=== PATIENT | female | born 1935 | race Caucasian/White ===

== ENCOUNTER 2020-08-17 15:10 | Inpatient (IN) | payer MEDICARE ==
[~2020-08-17] VITALS: Ht 165.1 cm; Wt 72.6 kg
[~2020-08-17 15:10] MED LIST: ALPR1TAB7 PO; ASPI-1169 PO; ATEN100T PO; CALC667T6 PO; FURO40TA5 PO; LACT1CAP57 PO; LEVO500T90 PO; MUPI22OI2 TOP; PANT40TA49 PO; SERT100T PO; TRIAMCINOLONE 0.1% TOP
[2020-08-17 16:00] VITALS: BP 118/36
[2020-08-17] MEDS ORDERED: Z GUARD REMEDY PASTE 57 GM TUBE TOP PRN (16:30)
[2020-08-17] MEDS ORDERED: DOCU100C36 PO (17:29)
[2020-08-17] MEDS ORDERED: ASPI-1169 PO (17:29)
[2020-08-17] MEDS ORDERED: FLUT1BLS6 IH (17:29)
[2020-08-17] MEDS ORDERED: ALPR1TAB2 PO (17:29)
[2020-08-17] MEDS ORDERED: METO25TA6 PO (17:29)
[2020-08-17] MEDS ORDERED: CHOL100062 PO (17:29)
[2020-08-17] MEDS ORDERED: AMLO10TA59 PO (17:29)
[2020-08-17] MEDS ORDERED: APIX2.5T PO (17:29)
[2020-08-17] MEDS ORDERED: SULF1TAB48 PO (17:29)
[2020-08-17] MEDS ORDERED: PANT40TA49 PO (17:29)
[2020-08-17] MEDS ORDERED: ZOLP5TAB8 PO (17:29)
[2020-08-17] MEDS ORDERED: SENN-18 PO (17:29)
[2020-08-17] MEDS ORDERED: IPRA3AMP23 IH (17:29)
[2020-08-17] MEDS ORDERED: DOXE10CA2 PO (17:29)
[2020-08-17] MEDS ORDERED: SERT100T PO (17:29)
[2020-08-17] MEDS ORDERED: SUCR1ORA4 PO (17:29)
[2020-08-17] MEDS ORDERED: OMEG1CAP PO (17:29)
[2020-08-17] MEDS ORDERED: ACET-2154 PO (17:29)
[2020-08-17] MEDS ORDERED: PRAV80TA21 PO (17:29)
[2020-08-17] MEDS ORDERED: CHOL400D8 PO (17:29)
[2020-08-17] MEDS ORDERED: MAGN400O6 PO (17:29)
--- NOTE | 2020-08-17 19:10 | NUR ---
Admitted this 84 year old female from [facility] with diagnosis of Chronic Diastolic Heart Failure and Afib. Pt in NAD, no SOB, denies pain at this time. Pt oriented to ARU, floor, assigned room number, call light usage, pt verbalized understanding. Pt A&Ox4, able to make needs known. Medications from sending facility entered. Dr. Gaytan and admitting hospitalist SECTION PLOTTER OPERATOR Leonid Proctor aware of admission. VSS: BP 118/36, HR 81, RR 20, Temp 98.0, O2 saturation 97% on RA. Pt able to ambulate safely to restroom and void in toilet. MRSA swab endorsed to grain grader nurse. Pt's son Grady at bedside, unit orientation provided. Belongings inventoried. Call light and belongings within reach. Safety measures in place. Will endorse to grain grader nurse for continuity of care.
[2020-08-17 20:30] VITALS: BP 112/38
[2020-08-17] MEDS ORDERED: ZOLPIDEM 5 MG TABLET PO PRN (22:00)
[2020-08-17] MEDS ORDERED: MAGNESIUM HYDROXIDE 30 ML LIQUID UDC PO PRN (22:00)
[2020-08-17] MEDS ORDERED: DOCUSATE SODIUM 100 MG CAPSULE PO PRN (22:00)
--- NOTE | 2020-08-17 22:00 | NUR ---
HOTEL ASSISTANT MANAGER Leonid aware of patient admission by AM nurse . Meds Reconcile done, notified regarding patient need PRN sleeping medication. administered as ordered. kept all belongings with in reach. calm and maintained quite environment. All needs anticipated. call light with in reach. will continue monitoring.
[2020-08-17] MEDS: ACETAMINOPHEN 325 MG TABLET PO PRN (23:10)
[2020-08-18 04:30] VITALS: BP 111/57
--- NOTE | 2020-08-18 05:20 | NUR ---
Patient AO x 4 at room air saturating 98% ,slept well throughout night no c/o pain or discomfort. needs anticipated. call light with in reach. endorse accordingly.
[2020-08-18 08:09] VITALS: BP 124/52
[2020-08-18] MEDS ORDERED: ATENOLOL 50 MG TABLET PO SCH (09:00)
[2020-08-18] MEDS: CHOLECALCIFEROL 1,000 UNIT TABLET PO SCH (09:25)
[2020-08-18] MEDS: ASPIRIN 81 MG TAB.CHEW PO SCH (09:25)
[2020-08-18] MEDS: OMEGA-3 FATTY ACIDS/FISH OIL CAPSULE PO SCH ×2 (09:25→16:43)
[2020-08-18] MEDS: FUROSEMIDE 40 MG TABLET PO SCH (09:26)
[2020-08-18] MEDS: AMLODIPINE 10 MG TABLET PO SCH (09:26)
[2020-08-18] MEDS: SERTRALINE HCL 100 MG TABLET PO SCH (09:26)
[2020-08-18] MEDS: METOPROLOL TARTRATE 25 MG TABLET PO SCH ×2 (09:26→20:36)
[2020-08-18] MEDS: APIXABAN 2.5 MG TABLET PO SCH ×2 (09:27→16:39)
[2020-08-18] MEDS: CULTURELLE CAPSULE PO SCH ×2 (09:27→16:38)
[2020-08-18] MEDS ORDERED: BISMUTH SUBSALICYLATE 262 MG/15 ML UDC PO PRN (11:45)
--- NOTE | 2020-08-18 14:11 | NUR ---
RECEIVED REPORT FROM MS NURSEAFUA. PATIENT IN BED, AWAKE ALERT AND ORIENTED X4. NO COMPLAIN OF PAIN NOTED AT THIS TIME. NURSE ADDRESSED ALL PATIENT NEEDS. PATIENT RETURNED WITH SAFETY MEASURES, CALL LIGHT WITHIN REACH, BED LOW AND LOCK, SIDE RAILS X2 TO PREVENT FALLS. WILL CONTINUE TO MONITOR.
[2020-08-18 15:20] VITALS: BP 105/51
[2020-08-18] MEDS ORDERED: SENNOSIDES 1 TABLET PO PRN (15:45)
[2020-08-18] MEDS ORDERED: ALBUTEROL SULFATE 2.5 MG/3 ML NEBU NEB PRN (15:45)
[2020-08-18] MEDS ORDERED: IPRATROPIUM BROMIDE 0.5 MG/2.5 ML NEBU NEB PRN (15:45)
[2020-08-18] MEDS: PANTOPRAZOLE SODIUM 40 MG TABLET.DR PO SCH (16:38)
[2020-08-18] MEDS: SUCRALFATE 1 G/10 ML LIQUID UDC PO SCH ×2 (16:40→20:20)
--- NOTE | 2020-08-18 18:08 | NUR ---
PATIENT IN BED, AWAKE ALERT ORIENTED X 4. MAKES NEEDS KNOWN TO STAFF. PATIENT PLEASANT. NO COMPLAIN OF PAIN NOTED AT THIS TIME. SON VISITED AND ACCOMPANIED PATIENT AT BEDSIDE. NURSE ADDRESSED ALL NEEDS. SAFETY MEASURES PROVIDED, CALL LIGHT WITHIN REACH, BED LOW AND LOCK, SIDE RAILS X2 UP TO PREVENT FALLS. WILL ENDORSE TO TEEN COUNSELOR NURSE
[2020-08-18 20:20] VITALS: BP 114/42
[2020-08-18] MEDS: SULFAMETH/TRIMETH 800/160 MG TABLET PO SCH (20:21)
[2020-08-18] MEDS: DOXEPIN 10 MG CAPSULE PO SCH (20:30)
[2020-08-18] MEDS ORDERED: ATORVASTATIN 20 MG TABLET PO SCH (21:00)
[2020-08-18] MEDS: ALPRAZOLAM 0.5 MG TABLET PO PRN (22:57)
[2020-08-19 04:15] VITALS: BP 135/63
[2020-08-19 06:37] LABS: BASOPHILS # (AUTO) 0.1 K/uL (0.0-8.0); BASOPHILS % (AUTO) 0.6 % (0.0-2.0); EOSINOPHILS # (AUTO) 0.3 K/uL (0.0-0.7); EOSINOPHILS % (AUTO) 2.6 % (0.0-7.0); HEMATOCRIT 32.1 % (31.2-41.9); HEMOGLOBIN 10.3 g/dL (10.9-14.3); LYMPHOCYTES # (AUTO) 1.4 K/uL (20.0-40.0); LYMPHOCYTES % (AUTO) 12.4 % (20.5-51.5); MEAN CORPUSCULAR HEMOGLOBIN 24.6 uug (24.7-32.8); MEAN CORPUSCULAR HGB CONC 32 g/dL (32.3-35.6); MEAN CORPUSCULAR VOLUME 76.8 fL (75.5-95.3); MONOCYTES # (AUTO) 0.8 K/uL (2.0-10.0); MONOCYTES % (AUTO) 7.1 % (0.0-11.0); NEUTROPHILS # (AUTO) 8.5 K/uL (1.8-8.9); NEUTROPHILS % (AUTO) 77.3 % (38.5-71.5); PLATELET COUNT (AUTO) 155 K/uL (179-408); RED BLOOD CELL COUNT(AUTO) 4.19 MIL/uL (3.63-4.92)
--- NOTE | 2020-08-19 06:42 | NUR ---
Patient AO x 4 at room air saturating 96% ,slept well throughout night no c/o pain or discomfort. needs anticipated. call light with in reach. endorse accordingly AM nurse.
[2020-08-19 07:34] LABS: ALANINE AMINOTRANSFERASE 9 U/L (14-59); ALKALINE PHOSPHATASE 81 U/L (50-136); ASPARTATE AMINOTRANSFERASE 30 U/L (15-37); BILIRUBIN,TOTAL 0.2 mg/dL (0.2-1.0); CARBON DIOXIDE 32 mmol/L (21-32); CHLORIDE 103 mmol/L (98-107); CHOLESTEROL 116 mg/dL (<200); CREATININE 2.1 mg/dL (0.6-1.3); GLUCOSE 103 mg/dL (74-106); HDL CHOLESTEROL 33 mg/dL (40-60); MAGNESIUM 2.5 mg/dL (1.8-2.4); POTASSIUM 4.3 mmol/L (3.5-5.1); TOTAL PROTEIN, SERUM 7.1 g/dL (6.4-8.2); TRIGLYCERIDES 209 MG/DL (30-150); UREA NITROGEN, BLOOD 32 mg/dL (7-18)
[2020-08-19 08:18] VITALS: BP 117/48
[2020-08-19] MEDS: AMLODIPINE 10 MG TABLET PO SCH (09:00)
[2020-08-19] MEDS: METOPROLOL TARTRATE 25 MG TABLET PO SCH ×2 (09:00→20:23)
[2020-08-19] MEDS: FUROSEMIDE 40 MG TABLET PO SCH (09:46)
[2020-08-19] MEDS: CHOLECALCIFEROL 1,000 UNIT TABLET PO SCH (09:46)
[2020-08-19] MEDS: CULTURELLE CAPSULE PO SCH ×2 (09:46→17:30)
[2020-08-19] MEDS: SERTRALINE HCL 100 MG TABLET PO SCH (09:46)
[2020-08-19] MEDS: OMEGA-3 FATTY ACIDS/FISH OIL CAPSULE PO SCH ×2 (09:47→17:30)
[2020-08-19] MEDS: PANTOPRAZOLE SODIUM 40 MG TABLET.DR PO SCH (09:47)
[2020-08-19] MEDS: ASPIRIN 81 MG TAB.CHEW PO SCH (09:47)
[2020-08-19] MEDS: SULFAMETH/TRIMETH 800/160 MG TABLET PO SCH ×2 (09:47→20:22)
[2020-08-19] MEDS: APIXABAN 2.5 MG TABLET PO SCH ×2 (09:49→17:32)
[2020-08-19] MEDS: FLUTICASONE/VILANTEROL 1 EACH BLST.W.DEV INH SCH (09:50)
[2020-08-19] MEDS: SUCRALFATE 1 G TABLET PO SCH ×3 (15:03→20:21)
[2020-08-19 15:52] VITALS: BP 105/29
[2020-08-19] MEDS: ATORVASTATIN 40 MG TABLET PO SCH (20:22)
[2020-08-19 20:26] VITALS: BP 109/51
[2020-08-19] MEDS ORDERED: PANTOPRAZOLE SODIUM 40 MG TABLET.DR PO SCH (21:00)
--- NOTE | 2020-08-19 21:00 | NUR ---
AAOx4 Watching TV upon initial rounds. Needs attended. Ambulates to the BR with walker. Voiding freely. Compliant with meds. Tolerated po meds well. No acute distress noted. BP 109/51 Lopressor held. Kept comfortable. Will monitor] patient. Fall precautions maintained. Siderails up for safety.
[2020-08-19] MEDS: DOXEPIN 10 MG CAPSULE PO SCH (22:00)
[2020-08-19] MEDS: ALPRAZOLAM 0.5 MG TABLET PO PRN (22:01)
--- NOTE | 2020-08-20 06:37 | NUR ---
End of shift notes: Slept well most of the shift. Needs attended. Denies any pain nor any discomfort. VSS. Will monitor patient.
[2020-08-20 08:00] VITALS: BP 125/41
[2020-08-20] MEDS: CULTURELLE CAPSULE PO SCH ×2 (08:58→16:22)
[2020-08-20] MEDS: CHOLECALCIFEROL 1,000 UNIT TABLET PO SCH (08:58)
[2020-08-20] MEDS: FUROSEMIDE 40 MG TABLET PO SCH (08:58)
[2020-08-20] MEDS: OMEGA-3 FATTY ACIDS/FISH OIL CAPSULE PO SCH ×2 (08:58→16:22)
[2020-08-20] MEDS: SULFAMETH/TRIMETH 800/160 MG TABLET PO SCH ×2 (08:58→20:18)
[2020-08-20] MEDS: ASPIRIN 81 MG TAB.CHEW PO SCH (08:58)
[2020-08-20] MEDS: SERTRALINE HCL 100 MG TABLET PO SCH (08:58)
[2020-08-20] MEDS: METOPROLOL TARTRATE 25 MG TABLET PO SCH ×2 (09:00→20:22)
--- NOTE | 2020-08-20 09:00 | NUR ---
RECEIVED PATIENT AWAKE ALERT AND ORIENTED DENIES PAIN OR DISCOMFORTS AT THIS TIME CALL LIGHTS AND PERSONAL BELONGINGS ARE WITHIN EASY REACH AT THIS TIME DUE MEDS GIVEN WILL CONTINUE TO OBSERVE.
[2020-08-20] MEDS: AMLODIPINE 10 MG TABLET PO SCH (09:01)
[2020-08-20] MEDS: APIXABAN 2.5 MG TABLET PO SCH ×2 (09:07→16:22)
[2020-08-20] MEDS: PANTOPRAZOLE SODIUM 40 MG TABLET.DR PO SCH ×2 (09:08→16:22)
[2020-08-20] MEDS: FLUTICASONE/VILANTEROL 1 EACH BLST.W.DEV INH SCH (09:44)
[2020-08-20] MEDS ORDERED: SUCRALFATE 1 G TABLET PO SCH (11:30)
--- NOTE | 2020-08-20 14:00 | NUR ---
PATIENT SEEN AMBULATING WITH THE FRONT WHEEL WALKER WITH THE PHYSICAL THERAPY WITH GOOD ENDURANCE AT THIS TIME.
--- NOTE | 2020-08-20 14:55 | NUR ---
INDIVIDUALIZED PLAN OF CARE
[2020-08-20] MEDS: ACETAMINOPHEN 325 MG TABLET PO PRN (16:47)
--- NOTE | 2020-08-20 16:47 | NUR ---
PATIENT C/O HAS A HEADACHE MEDICATED WITH TYLENOL ORDERED MADE COMFORTABLE AND WILL CONTINUE TO OBSERVE.
--- NOTE | 2020-08-20 18:19 | NUR ---
PATIENT IS RESTING AT THIS TIME STATED THAT SHE IS PAIN FREE TYLENOL WAS EFFECTIVE.
[2020-08-20] MEDS: ATORVASTATIN 40 MG TABLET PO SCH (20:13)
[2020-08-20] MEDS: DOXEPIN 10 MG CAPSULE PO SCH (20:13)
[2020-08-20 20:18] VITALS: BP 108/32
--- NOTE | 2020-08-20 20:55 | NUR ---
Received pt resting in bed. AAO x4. Son was at bedside. No acute distress noted. Denies pain/ discomfort. Due meds given as ordered. Safety measures maintained. Call light and personal items within reach. Will continue to monitor.
[2020-08-20 22:07] VITALS: BP 134/49
[2020-08-20] MEDS: ALPRAZOLAM 0.5 MG TABLET PO PRN (22:11)
[2020-08-21 04:44] VITALS: BP 130/51
[2020-08-21] MEDS: PANTOPRAZOLE SODIUM 40 MG TABLET.DR PO SCH ×2 (06:22→17:50)
[2020-08-21 08:35] VITALS: BP 101/68
[2020-08-21] MEDS: METOPROLOL TARTRATE 25 MG TABLET PO SCH ×2 (09:00→21:31)
[2020-08-21] MEDS: CULTURELLE CAPSULE PO SCH ×2 (09:48→17:50)
[2020-08-21] MEDS: FUROSEMIDE 40 MG TABLET PO SCH (09:49)
[2020-08-21] MEDS: SULFAMETH/TRIMETH 800/160 MG TABLET PO SCH ×2 (09:49→21:30)
[2020-08-21] MEDS: ASPIRIN 81 MG TAB.CHEW PO SCH (09:50)
[2020-08-21] MEDS: CHOLECALCIFEROL 1,000 UNIT TABLET PO SCH (09:50)
[2020-08-21] MEDS: OMEGA-3 FATTY ACIDS/FISH OIL CAPSULE PO SCH ×2 (09:50→17:50)
[2020-08-21] MEDS: FLUTICASONE/VILANTEROL 1 EACH BLST.W.DEV INH SCH (09:51)
[2020-08-21] MEDS: SERTRALINE HCL 100 MG TABLET PO SCH (09:51)
[2020-08-21] MEDS: APIXABAN 2.5 MG TABLET PO SCH ×2 (09:53→17:51)
[2020-08-21] MEDS: AMLODIPINE 10 MG TABLET PO SCH (09:54)
[2020-08-21 16:08] VITALS: BP 128/40
[2020-08-21] MEDS: ACETAMINOPHEN 325 MG TABLET PO PRN (19:06)
[2020-08-21 20:17] VITALS: BP 122/36
[2020-08-21] MEDS: DOXEPIN 10 MG CAPSULE PO SCH (21:31)
[2020-08-21] MEDS: ALPRAZOLAM 0.5 MG TABLET PO PRN (21:32)
[2020-08-21] MEDS: ATORVASTATIN 40 MG TABLET PO SCH (21:32)
[2020-08-22 04:42] VITALS: BP 155/57
[2020-08-22] MEDS: PANTOPRAZOLE SODIUM 40 MG TABLET.DR PO SCH ×2 (06:31→16:58)
[2020-08-22 06:37] LABS: BASOPHILS % (AUTO) 0.4 % (0.0-2.0); EOSINOPHILS # (AUTO) 0.3 K/uL (0.0-0.7); HEMATOCRIT 31.3 % (31.2-41.9); HEMOGLOBIN 9.9 g/dL (10.9-14.3); LYMPHOCYTES % (AUTO) 11.7 % (20.5-51.5); MEAN CORPUSCULAR HEMOGLOBIN 24.5 uug (24.7-32.8); MEAN CORPUSCULAR HGB CONC 31 g/dL (32.3-35.6); MONOCYTES # (AUTO) 0.6 K/uL (2.0-10.0); NEUTROPHILS # (AUTO) 6.3 K/uL (1.8-8.9); NEUTROPHILS % (AUTO) 76.9 % (38.5-71.5); PLATELET COUNT (AUTO) 153 K/uL (179-408); RED BLOOD CELL COUNT(AUTO) 4.02 MIL/uL (3.63-4.92); WHITE BLOOD COUNT (AUTO) 8.2 K/uL (3.8-11.8)
[2020-08-22 06:55] LABS: ALANINE AMINOTRANSFERASE 9 U/L (14-59); ALKALINE PHOSPHATASE 76 U/L (50-136); ASPARTATE AMINOTRANSFERASE 16 U/L (15-37); BILIRUBIN,TOTAL 0.1 mg/dL (0.2-1.0); CARBON DIOXIDE 26 mmol/L (21-32); CHLORIDE 106 mmol/L (98-107); CREATININE 2.3 mg/dL (0.6-1.3); GLUCOSE 110 mg/dL (74-106); MAGNESIUM 2.4 mg/dL (1.8-2.4); PHOSPHOROUS 4.4 mg/dL (2.5-4.9); POTASSIUM 4.2 mmol/L (3.5-5.1); TOTAL PROTEIN, SERUM 6.9 g/dL (6.4-8.2); UREA NITROGEN, BLOOD 33 mg/dL (7-18)
--- NOTE | 2020-08-22 07:17 | NUR ---
Patient remain calm and relaxed slept throughout the night. AAO x4.No acute distress noted. Denies pain/ discomfort. Due meds given as ordered. Safety measures maintained. Call light and personal items within reach. Will continue to monitor. Will endorse accordingly to AM shift RN.
[2020-08-22] MEDS: CULTURELLE CAPSULE PO SCH ×2 (09:09→16:58)
[2020-08-22] MEDS: ASPIRIN 81 MG TAB.CHEW PO SCH (09:09)
[2020-08-22] MEDS: FLUTICASONE/VILANTEROL 1 EACH BLST.W.DEV INH SCH (09:09)
[2020-08-22] MEDS: SULFAMETH/TRIMETH 800/160 MG TABLET PO SCH ×2 (09:10→20:30)
[2020-08-22] MEDS: AMLODIPINE 10 MG TABLET PO SCH (09:11)
[2020-08-22] MEDS: FUROSEMIDE 40 MG TABLET PO SCH (09:11)
[2020-08-22] MEDS: CHOLECALCIFEROL 1,000 UNIT TABLET PO SCH (09:11)
[2020-08-22] MEDS: SERTRALINE HCL 100 MG TABLET PO SCH (09:11)
[2020-08-22] MEDS: OMEGA-3 FATTY ACIDS/FISH OIL CAPSULE PO SCH ×2 (09:12→16:58)
[2020-08-22] MEDS: METOPROLOL TARTRATE 25 MG TABLET PO SCH ×2 (09:12→20:29)
[2020-08-22] MEDS: APIXABAN 2.5 MG TABLET PO SCH ×2 (09:13→16:59)
[2020-08-22 11:17] VITALS: BP 132/45
[2020-08-22 16:14] VITALS: BP 115/43
--- NOTE | 2020-08-22 18:39 | NUR ---
Patient AOx4 in stable condition, participates with therapy well this day. no c/o of pain/discomfort noted. Patient compliant with medication. Patient assisted to the bathroom for self care. Fall risk precaution maintained. not in distress. will continue monitor
[2020-08-22 20:09] VITALS: BP 157/50
[2020-08-22] MEDS: ATORVASTATIN 40 MG TABLET PO SCH (20:29)
[2020-08-22] MEDS: ACETAMINOPHEN 325 MG TABLET PO PRN (20:29)
[2020-08-22] MEDS: ALPRAZOLAM 0.5 MG TABLET PO PRN (21:51)
[2020-08-22] MEDS: DOXEPIN 10 MG CAPSULE PO SCH (21:52)
[2020-08-23 04:15] VITALS: BP 127/82
[2020-08-23] MEDS: PANTOPRAZOLE SODIUM 40 MG TABLET.DR PO SCH ×2 (06:19→16:55)
[2020-08-23 08:03] VITALS: BP_SYST 112; BP_SYST 166; BP_DIAS 42; BP_DIAS 63
[2020-08-23] MEDS: SERTRALINE HCL 100 MG TABLET PO SCH (08:19)
[2020-08-23] MEDS: OMEGA-3 FATTY ACIDS/FISH OIL CAPSULE PO SCH ×2 (08:21→16:55)
[2020-08-23] MEDS: SULFAMETH/TRIMETH 800/160 MG TABLET PO SCH (08:21)
[2020-08-23] MEDS: CULTURELLE CAPSULE PO SCH ×2 (08:21→16:54)
[2020-08-23] MEDS: FUROSEMIDE 40 MG TABLET PO SCH (08:21)
[2020-08-23] MEDS: METOPROLOL TARTRATE 25 MG TABLET PO SCH ×2 (08:21→20:22)
[2020-08-23] MEDS: CHOLECALCIFEROL 1,000 UNIT TABLET PO SCH (08:21)
[2020-08-23] MEDS: ASPIRIN 81 MG TAB.CHEW PO SCH (08:21)
[2020-08-23] MEDS: AMLODIPINE 10 MG TABLET PO SCH (08:22)
[2020-08-23] MEDS: APIXABAN 2.5 MG TABLET PO SCH ×2 (08:27→16:55)
[2020-08-23] MEDS: FLUTICASONE/VILANTEROL 1 EACH BLST.W.DEV INH SCH (08:38)
[2020-08-23 15:15] VITALS: BP 107/48
--- NOTE | 2020-08-23 15:38 | NUR ---
Patient is alert, oriented x4, no sob, resp even nonlabored, skin warm and dry to touch, tolerated PT, OT services well, no distress noted
[2020-08-23 20:00] VITALS: BP 125/57
[2020-08-23] MEDS: ACETAMINOPHEN 325 MG TABLET PO PRN (20:21)
[2020-08-23] MEDS: ATORVASTATIN 40 MG TABLET PO SCH (20:21)
[2020-08-23] MEDS: ALPRAZOLAM 0.5 MG TABLET PO PRN (21:21)
[2020-08-23] MEDS: DOXEPIN 10 MG CAPSULE PO SCH (21:21)
[2020-08-24 05:35] VITALS: BP 104/55
[2020-08-24] MEDS: PANTOPRAZOLE SODIUM 40 MG TABLET.DR PO SCH ×2 (06:13→16:40)
[2020-08-24 06:26] LABS: BASOPHILS # (AUTO) 0.1 K/uL (0.0-8.0); BASOPHILS % (AUTO) 0.6 % (0.0-2.0); EOSINOPHILS # (AUTO) 0.4 K/uL (0.0-0.7); EOSINOPHILS % (AUTO) 3.7 % (0.0-7.0); HEMATOCRIT 33.3 % (31.2-41.9); HEMOGLOBIN 10.5 g/dL (10.9-14.3); LYMPHOCYTES # (AUTO) 1.4 K/uL (20.0-40.0); LYMPHOCYTES % (AUTO) 13.9 % (20.5-51.5); MEAN CORPUSCULAR HEMOGLOBIN 24.6 uug (24.7-32.8); MEAN CORPUSCULAR HGB CONC 32 g/dL (32.3-35.6); MEAN CORPUSCULAR VOLUME 77.8 fL (75.5-95.3); MONOCYTES # (AUTO) 0.7 K/uL (2.0-10.0); MONOCYTES % (AUTO) 6.7 % (0.0-11.0); NEUTROPHILS # (AUTO) 7.5 K/uL (1.8-8.9); NEUTROPHILS % (AUTO) 75.1 % (38.5-71.5); PLATELET COUNT (AUTO) 199 K/uL (179-408); RED BLOOD CELL COUNT(AUTO) 4.29 MIL/uL (3.63-4.92)
[2020-08-24 06:37] LABS: ALANINE AMINOTRANSFERASE 10 U/L (14-59); ALKALINE PHOSPHATASE 83 U/L (50-136); ASPARTATE AMINOTRANSFERASE 17 U/L (15-37); BILIRUBIN,TOTAL 0.4 mg/dL (0.2-1.0); CARBON DIOXIDE 25 mmol/L (21-32); CHLORIDE 102 mmol/L (98-107); CREATININE 2.5 mg/dL (0.6-1.3); GLUCOSE 105 mg/dL (74-106); MAGNESIUM 2.2 mg/dL (1.8-2.4); PHOSPHOROUS 5.2 mg/dL (2.5-4.9); POTASSIUM 4.4 mmol/L (3.5-5.1); TOTAL PROTEIN, SERUM 7.4 g/dL (6.4-8.2); UREA NITROGEN, BLOOD 38 mg/dL (7-18)
[2020-08-24] MEDS: CULTURELLE CAPSULE PO SCH ×2 (08:08→16:39)
[2020-08-24] MEDS: CHOLECALCIFEROL 1,000 UNIT TABLET PO SCH (08:08)
[2020-08-24] MEDS: ASPIRIN 81 MG TAB.CHEW PO SCH (08:08)
[2020-08-24] MEDS: SERTRALINE HCL 100 MG TABLET PO SCH (08:08)
[2020-08-24] MEDS: OMEGA-3 FATTY ACIDS/FISH OIL CAPSULE PO SCH ×2 (08:08→16:39)
[2020-08-24 08:09] VITALS: BP 113/49
[2020-08-24] MEDS: APIXABAN 2.5 MG TABLET PO SCH ×2 (08:10→16:39)
[2020-08-24] MEDS: METOPROLOL TARTRATE 25 MG TABLET PO SCH ×2 (08:11→20:47)
[2020-08-24] MEDS: FUROSEMIDE 40 MG TABLET PO SCH (08:11)
[2020-08-24] MEDS: AMLODIPINE 10 MG TABLET PO SCH (08:12)
[2020-08-24] MEDS: FLUTICASONE/VILANTEROL 1 EACH BLST.W.DEV INH SCH (08:13)
--- NOTE | 2020-08-24 13:49 | NUR ---
INTERDISCIPLINARY TEAM CONFERENCE
[2020-08-24 14:50] VITALS: BP 113/42
[2020-08-24 16:39] LABS: *BILIRUBIN,URIN NEGATIVE (NEGATIVE); *BLOOD, URINE NEGATIVE (NEGATIVE); *CLARITY,URINE CLEAR (CLEAR); *COLOR,URINE YELLOW (YELLOW); *KETONES,URINE NEGATIVE (NEGATIVE); *UROBILINOGEN,URINE 0.2 E.U./dl (NORMAL); LEUKOCYTE ESTERASE ,URINE NEGATIVE (NEGATIVE); NITRITE, URINE NEGATIVE (NEGATIVE); PH,URINE 5.5 (5.0-8.0); UGLUCOSE NEGATIVE (NEGATIVE)
[2020-08-24 16:44] LABS: *CREATININE,URINE 42.2 mg/dL (30-125); *URINE TOTAL PROTEIN RANDOM 7.1 mg/dL (<150/24HR)
--- NOTE | 2020-08-24 17:05 | NUR ---
patient is alert, oriented x4, no sob, no distress noted, participated with PT, OT services tolerated well.
--- NOTE | 2020-08-24 19:45 | NUR ---
PATIENT ALERT ORIENTED, NO SOB NO CHEST PAIN. PATIENT TOLERATE ADL'S. PATIENT STAYED IN HER ROOM, CONTINENT OF BOWEL AND BLADDER, CALL LIGHT WITHIN REACH.
[2020-08-24 20:00] VITALS: BP 113/77
[2020-08-24] MEDS: ATORVASTATIN 40 MG TABLET PO SCH (20:46)
[2020-08-24] MEDS: DOXEPIN 10 MG CAPSULE PO SCH (20:46)
[2020-08-24] MEDS: ALPRAZOLAM 0.5 MG TABLET PO PRN (21:00)
--- NOTE | 2020-08-24 22:00 | NUR ---
PATIENT HAS EPISODE OF ANXIETY REQUESTED XANAX, MEDICATED PATIENT ORDERED. CONT TO MONITOR.
[2020-08-25 04:00] VITALS: BP 120/56
[2020-08-25 06:51] LABS: BASOPHILS % (AUTO) 0.4 % (0.0-2.0); EOSINOPHILS # (AUTO) 0.3 K/uL (0.0-0.7); EOSINOPHILS % (AUTO) 3.2 % (0.0-7.0); HEMOGLOBIN 10.4 g/dL (10.9-14.3); LYMPHOCYTES # (AUTO) 1.1 K/uL (20.0-40.0); LYMPHOCYTES % (AUTO) 11.8 % (20.5-51.5); MEAN CORPUSCULAR HEMOGLOBIN 24.4 uug (24.7-32.8); MEAN CORPUSCULAR HGB CONC 31 g/dL (32.3-35.6); MEAN CORPUSCULAR VOLUME 77.6 fL (75.5-95.3); MONOCYTES # (AUTO) 0.6 K/uL (2.0-10.0); NEUTROPHILS # (AUTO) 7.5 K/uL (1.8-8.9); NEUTROPHILS % (AUTO) 78.6 % (38.5-71.5); PLATELET COUNT (AUTO) 198 K/uL (179-408); RED BLOOD CELL COUNT(AUTO) 4.25 MIL/uL (3.63-4.92); WHITE BLOOD COUNT (AUTO) 9.5 K/uL (3.8-11.8)
[2020-08-25] MEDS: PANTOPRAZOLE SODIUM 40 MG TABLET.DR PO SCH ×2 (06:54→16:17)
[2020-08-25 07:12] LABS: ALANINE AMINOTRANSFERASE 17 U/L (14-59); ALKALINE PHOSPHATASE 80 U/L (50-136); ASPARTATE AMINOTRANSFERASE 14 U/L (15-37); BILIRUBIN,TOTAL 0.2 mg/dL (0.2-1.0); CARBON DIOXIDE 24 mmol/L (21-32); CHLORIDE 102 mmol/L (98-107); CREATININE 2.3 mg/dL (0.6-1.3); GLUCOSE 125 mg/dL (74-106); MAGNESIUM 2.3 mg/dL (1.8-2.4); PHOSPHOROUS 4.9 mg/dL (2.5-4.9); POTASSIUM 4.1 mmol/L (3.5-5.1); TOTAL PROTEIN, SERUM 7.4 g/dL (6.4-8.2); UREA NITROGEN, BLOOD 40 mg/dL (7-18)
--- NOTE | 2020-08-25 07:38 | NUR ---
PATIENT ALERT ORIENTED, NO SOB NO CHEST PAIN, NO COMPLAIN OF PAIN, CONT TO MONITOR, TOLERATE ADL'S.
[2020-08-25 07:53] VITALS: BP 124/50
[2020-08-25] MEDS: OMEGA-3 FATTY ACIDS/FISH OIL CAPSULE PO SCH ×2 (08:06→16:17)
[2020-08-25] MEDS: CULTURELLE CAPSULE PO SCH ×2 (08:06→16:17)
[2020-08-25] MEDS: ASPIRIN 81 MG TAB.CHEW PO SCH (08:06)
[2020-08-25] MEDS: CHOLECALCIFEROL 1,000 UNIT TABLET PO SCH (08:06)
[2020-08-25] MEDS: FUROSEMIDE 40 MG TABLET PO SCH (08:07)
[2020-08-25] MEDS: APIXABAN 2.5 MG TABLET PO SCH ×2 (08:07→16:17)
[2020-08-25] MEDS: AMLODIPINE 10 MG TABLET PO SCH (08:07)
[2020-08-25] MEDS: SERTRALINE HCL 100 MG TABLET PO SCH (08:08)
[2020-08-25] MEDS: METOPROLOL TARTRATE 25 MG TABLET PO SCH ×2 (08:08→20:31)
[2020-08-25] MEDS: FLUTICASONE/VILANTEROL 1 EACH BLST.W.DEV INH SCH (08:11)
[2020-08-25 14:41] VITALS: BP 131/63
[2020-08-25 20:08] VITALS: BP 137/67
[2020-08-25] MEDS: ATORVASTATIN 40 MG TABLET PO SCH (20:31)
[2020-08-25] MEDS: DOXEPIN 10 MG CAPSULE PO SCH (20:31)
[2020-08-25] MEDS: ALPRAZOLAM 0.5 MG TABLET PO PRN (22:30)
[2020-08-26 04:00] VITALS: BP 104/69
[2020-08-26] MEDS: PANTOPRAZOLE SODIUM 40 MG TABLET.DR PO SCH (06:28)
[2020-08-26 08:14] VITALS: BP 124/51
[2020-08-26] MEDS: AMLODIPINE 10 MG TABLET PO SCH (09:55)
[2020-08-26] MEDS: ASPIRIN 81 MG TAB.CHEW PO SCH (09:55)
[2020-08-26] MEDS: CHOLECALCIFEROL 1,000 UNIT TABLET PO SCH (09:55)
[2020-08-26] MEDS: FUROSEMIDE 40 MG TABLET PO SCH (09:55)
[2020-08-26] MEDS: CULTURELLE CAPSULE PO SCH (09:55)
[2020-08-26] MEDS: SERTRALINE HCL 100 MG TABLET PO SCH (09:55)
[2020-08-26] MEDS: OMEGA-3 FATTY ACIDS/FISH OIL CAPSULE PO SCH (09:56)
[2020-08-26] MEDS: APIXABAN 2.5 MG TABLET PO SCH (09:58)
[2020-08-26] MEDS: METOPROLOL TARTRATE 25 MG TABLET PO SCH (09:59)
[2020-08-26] MEDS: FLUTICASONE/VILANTEROL 1 EACH BLST.W.DEV INH SCH (10:00)
[2020-08-26 15:33] VITALS: BP 131/55
--- NOTE | 2020-08-26 17:26 | NUR ---
d/c to home with son picking her up. d/c instructions given. verbalized understanding regarding meds and f/u appts. refused d/c skin pics. does not want to get undressed.
== END 2020-08-26 16:10 | disposition home health service (06) | DRG 308 ==
PROVIDERS: ADMIT Physical Medicine & Rehabilitation Pain Medicine; ATTEND Physical Medicine & Rehabilitation Pain Medicine
DX: I48.91 Unspecified atrial fibrillation (principal); N17.0 Acute kidney failure with tubular necrosis; J96.21 Acute and chronic respiratory failure with hypoxia; I13.0 Hypertensive heart and chronic kidney disease with heart failure and stage 1 through stage 4 chronic kidney disease, or unspecified chronic kidney disease; D68.59 Other primary thrombophilia; I50.32 Chronic diastolic (congestive) heart failure; N39.0 Urinary tract infection, site not specified; R53.1 Weakness; R26.2 Difficulty in walking, not elsewhere classified; F32.9 Major depressive disorder, single episode, unspecified; I25.10 Atherosclerotic heart disease of native coronary artery without angina pectoris; I70.0 Atherosclerosis of aorta; J44.9 Chronic obstructive pulmonary disease, unspecified; Z87.891 Personal history of nicotine dependence; N18.9 Chronic kidney disease, unspecified; E78.5 Hyperlipidemia, unspecified; E66.9 Obesity, unspecified; E11.22 Type 2 diabetes mellitus with diabetic chronic kidney disease; Z95.5 Presence of coronary angioplasty implant and graft; Z90.710 Acquired absence of both cervix and uterus; Z90.49 Acquired absence of other specified parts of digestive tract
CPT/HCPCS: 36415; 82652; 83735; 84100; 84156; 84300; 84443; 85025

== ENCOUNTER 2021-11-10 13:05 | Inpatient (IN) | payer MEDICARE ==
[~2021-11-10] VITALS: Ht 162.6 cm; Wt 69.9 kg
[~2021-11-10 13:05] MED LIST changes: +ACET-2154 PO; +ALPR1TAB2 PO; -ALPR1TAB7 PO; +AMLO10TA59 PO; +APIX2.5T PO; -ATEN100T PO; -CALC667T6 PO; +CHOL100062 PO; +DOCU100C36 PO; +DOXE10CA2 PO; +FLUT1BLS6 IH; +IPRA3AMP23 IH; -LEVO500T90 PO; +MAGN400O6 PO; +METO25TA6 PO; -MUPI22OI2 TOP; +OMEG1CAP PO; +PRAV80TA21 PO; +SENN-18 PO; +SUCR1ORA4 PO; +SULF1TAB48 PO; -TRIAMCINOLONE 0.1% TOP
[2021-11-10] MEDS ORDERED: ALBU18HF2 INH (13:30)
[2021-11-10] MEDS ORDERED: predniSONE 20 MG TABLET PO ONE (13:30)
[2021-11-10] MEDS ORDERED: IPRATROPIUM BROMIDE 0.5 MG/2.5 ML NEBU NEB ONE (13:30)
[2021-11-10] MEDS ORDERED: ALBUTEROL SULFATE 2.5 MG/3 ML NEBU NEB ONE (13:30)
[2021-11-10] MEDS ORDERED: IPRATROPIUM BROMIDE 0.5 MG/2.5 ML NEBU ONE (13:35)
[2021-11-10] MEDS ORDERED: ALBUTEROL SULFATE 2.5 MG/3 ML NEBU ONE (13:35)
[2021-11-10] MEDS ORDERED: ALBUTEROL SULFATE 2.5 MG/ 0.5 ML NEBU ONE (13:35)
[2021-11-10] MEDS ORDERED: predniSONE 20 MG TABLET ONE (13:39)
[2021-11-10 13:47] LABS: HEMATOCRIT 39.4 % (31.2-41.9); MEAN CORPUSCULAR HEMOGLOBIN 24.2 uug (24.7-32.8); PLATELET COUNT (AUTO) 165 K/uL (179-408)
[2021-11-10] MEDS ORDERED: SOTA80TA26 PO (13:52)
[2021-11-10] MEDS ORDERED: FAMO-132 PO (13:52)
[2021-11-10] MEDS ORDERED: CLOP75TA33 PO (13:52)
[2021-11-10] MEDS ORDERED: CARV3.122 PO (13:52)
[2021-11-10] MEDS ORDERED: LIDO30AD10 TP (13:52)
[2021-11-10] MEDS ORDERED: LOSA25TA27 PO (13:52)
[2021-11-10] MEDS ORDERED: EZET10TA15 PO (13:52)
[2021-11-10 13:56] LABS: CARBON DIOXIDE 26 mmol/L (21-32); CHLORIDE 103 mmol/L (98-107); CREATININE 1.6 mg/dL (0.6-1.3); GLUCOSE 113 mg/dL (74-106); POTASSIUM 4.5 mmol/L (3.5-5.1); UREA NITROGEN, BLOOD 34 mg/dL (7-18)
--- NOTE | 2021-11-10 14:03 | NUR ---
Patient arrive while the undersigne was on lunch break as reported pt was seen by Md.
[2021-11-10 14:09] LABS: ALANINE AMINOTRANSFERASE 19 U/L (14-59); ALKALINE PHOSPHATASE 68 U/L (50-136); ASPARTATE AMINOTRANSFERASE 17 U/L (15-37); BILIRUBIN,DIRECT 0.1 mg/dL (0.0-0.2); BILIRUBIN,TOTAL 0.5 mg/dL (0.2-1.0)
--- NOTE | 2021-11-10 14:25 | NUR ---
on the phone with admitting physician.
[2021-11-10] MEDS ORDERED: DILTIAZEM HCL 60 MG TABLET ONE (14:27)
[2021-11-10] MEDS ORDERED: DILTIAZEM HCL 50 MG IV ONE (14:28)
[2021-11-10] MEDS ORDERED: DILTIAZEM HCL 25 MG IV IV ONE (14:30)
[2021-11-10] MEDS ORDERED: DILTIAZEM HCL 60 MG TABLET PO ONE (14:30)
[2021-11-10] MEDS ORDERED: DILTIAZEM HCL 25 MG IV ONE (14:32)
--- NOTE | 2021-11-10 14:40 | NUR ---
Call to request a bed Awaiting call back.
--- NOTE | 2021-11-10 14:43 | NUR ---
Patient received 15mg of IV cardizem as stated He'll change the orders.
[2021-11-10] MEDS ORDERED: REMEDY ESSENTIAL ZINC PASTE 113 GM TP PRN (14:45)
[2021-11-10] MEDS ORDERED: ENOXAPARIN SODIUM 40 MG/0.4 ML DISP.SYRIN SQ SCH (14:45)
[2021-11-10] MEDS ORDERED: MAGNESIUM HYDROXIDE 30 ML LIQUID UDC PO PRN (14:45)
[2021-11-10] MEDS ORDERED: IPRATROPIUM BROMIDE 0.5 MG/2.5 ML NEBU NEB PRN (14:45)
[2021-11-10] MEDS ORDERED: ONDANSETRON 4 MG/2 ML VIAL IV PRN (14:45)
[2021-11-10] MEDS ORDERED: ALBUTEROL SULFATE 1.25 MG/3 ML NEBU NEB PRN (14:45)
[2021-11-10] MEDS ORDERED: CEFTRIAXONE 1 G in IV DEXTROSE 5% 50 ML IV ONE (15:00)
[2021-11-10] MEDS ORDERED: ENOXAPARIN SODIUM 30 MG/0.3 ML DISP.SYRIN SUBCUT SCH (16:00)
--- NOTE | 2021-11-10 16:19 | NUR ---
Pt. taken up to room 315 AAOX4 sbp 133/69, HR 102. On room air pt. taken via wheelchair saturation of 93%. Nurse January at bedside and reminded to put pt. on 2LNC.
--- NOTE | 2021-11-10 16:20 | NUR ---
Received pt from ER at 1610 from nurse Estrada. Pt is a/o x 4, no complaint of chest pain but exhibits signs of shortness of breath. Placed pt on 2L nasal cannula, SpO2 of 94% on assessment. Pt does have history of pneumonia, emphysema and COPD. Pt is ambulatory and independent at home, lives with son but also has home health to work on PT /OT with her. Pt is admitted for uncontrolled A-fib and COPD exacerbation. She is presenting with afib on telemetry ranging from 85-125bpm. Comfort measures provided, call light within reach, will continue to monitor.
[2021-11-10 16:29] VITALS: BP 116/56
[2021-11-10] MEDS ORDERED: CARVEDILOL 3.125 MG TABLET PO SCH (18:45)
[2021-11-10] MEDS ORDERED: SOTALOL HCL 80 MG TABLET PO SCH ×2 (18:45→19:45)
[2021-11-10] MEDS ORDERED: APIXABAN 2.5 MG TABLET PO SCH (18:45)
[2021-11-10] MEDS ORDERED: LIDOCAINE 5% PATCH TD PRN (18:45)
[2021-11-10] MEDS: CARVEDILOL 6.25 MG TABLET PO SCH (19:08)
[2021-11-10] MEDS: IV NS 1000 ML 1,000 ML IV PRN (19:18)
[2021-11-10] MEDS: ATORVASTATIN 40 MG TABLET PO SCH (21:49)
[2021-11-10] MEDS: DOXEPIN 10 MG CAPSULE PO SCH (21:49)
[2021-11-10] MEDS: APIXABAN 2.5 MG TABLET PO SCH (21:51)
[2021-11-10] MEDS: ALPRAZOLAM 0.5 MG TABLET PO PRN (21:58)
[2021-11-10] MEDS: GUAIFENESIN/DEXTROMETHORPHAN 5 ML UDC PO PRN (22:01)
[2021-11-10] MEDS: methylPREDNISolone SOD SUCC 40 MG/ML VIAL IV SCH (22:59)
[2021-11-11] MEDS ORDERED: AZITHROMYCIN 500MG/ D5W 250ML IVPB **ER PYXIS ONLY IV ONE (00:30)
[2021-11-11] MEDS: AZITHROMYCIN IV 500 MG in IV DEXTROSE 5% 250 ML IV SCH (00:36)
[2021-11-11] MEDS: ALBUTEROL SULFATE 1.25 MG/3 ML NEBU NEB SCH ×4 (01:50→20:51)
[2021-11-11] MEDS: IPRATROPIUM BROMIDE 0.5 MG/2.5 ML NEBU NEB SCH ×4 (01:50→20:50)
[2021-11-11] MEDS: methylPREDNISolone SOD SUCC 40 MG/ML VIAL IV SCH ×3 (06:22→21:43)
--- NOTE | 2021-11-11 06:48 | NUR ---
Slept intermittently during the night, easy to arouse alert and oriented x 3 making needs and feeling known to staff. In no acute distress. IV antibiotics given as ordered. LFA IV infiltrated, started new IV to right wrist tolerated well. Needs attended. Call light within reach.
--- NOTE | 2021-11-11 07:20 | NUR ---
RECEIVED PATIENT IN BED WITH O2 AT 2L/M BY NASAL CANULA WITH NO SOB AT THIS TIME IVF INFUSING ORDERED WITH NO S/S OF INFILTERATION ON SITE CALL LIGHTS AND PERSONAL BELONGINGS ARE WITHIN EASY REACH AT THIS TIME WILL CONTINUE TO OBSERVE
[2021-11-11 07:41] LABS: CARBON DIOXIDE 23 mmol/L (21-32); CHLORIDE 103 mmol/L (98-107); CHOLESTEROL 142 mg/dL (<200); CREATININE 1.5 mg/dL (0.6-1.3); GLUCOSE 162 mg/dL (74-106); HDL CHOLESTEROL 45 mg/dL (40-60); MAGNESIUM 2.2 mg/dL (1.8-2.4); PHOSPHOROUS 3.2 mg/dL (2.5-4.9); POTASSIUM 4.8 mmol/L (3.5-5.1); TRIGLYCERIDES 112 MG/DL (30-150); UREA NITROGEN, BLOOD 35 mg/dL (7-18)
[2021-11-11 07:46] LABS: HEMATOCRIT 36.3 % (31.2-41.9); MEAN CORPUSCULAR HEMOGLOBIN 24.5 uug (24.7-32.8); MEAN CORPUSCULAR VOLUME 76.5 fL (75.5-95.3); PLATELET COUNT (AUTO) 131 K/uL (179-408)
[2021-11-11] MEDS: CHOLECALCIFEROL 1,000 UNIT TABLET PO SCH (08:40)
[2021-11-11] MEDS: SOTALOL HCL 80 MG TABLET PO SCH (08:40)
[2021-11-11] MEDS: CLOPIDOGREL 75 MG TABLET PO SCH (08:40)
[2021-11-11] MEDS: EZETIMIBE 10 MG TABLET PO SCH (08:40)
[2021-11-11] MEDS: SERTRALINE HCL 100 MG TABLET PO SCH (08:40)
[2021-11-11] MEDS: APIXABAN 2.5 MG TABLET PO SCH ×2 (08:41→16:45)
[2021-11-11] MEDS: CARVEDILOL 6.25 MG TABLET PO SCH ×2 (08:42→16:44)
[2021-11-11] MEDS: LOSARTAN POTASSIUM 25 MG TABLET PO SCH (08:42)
[2021-11-11] MEDS ORDERED: FAMOTIDINE 20 MG TABLET PO SCH (09:00)
[2021-11-11] MEDS ORDERED: AMLODIPINE 5 MG TABLET PO SCH (09:00)
[2021-11-11] MEDS: GUAIFENESIN/DEXTROMETHORPHAN 5 ML UDC PO PRN ×2 (09:40→16:44)
[2021-11-11] MEDS: ACETAMINOPHEN 325 MG TABLET PO PRN ×2 (09:41→20:58)
[2021-11-11 11:00] VITALS: BP 114/60
--- NOTE | 2021-11-11 12:09 | NUR ---
PATIENT SEEN AND EXAMINED BY DR TOM RODRIGUEZ WITH NEW ORDERS AND NOTED.
[2021-11-11] MEDS: IV NS 1000 ML 1,000 ML IV PRN (12:19)
[2021-11-11] MEDS: DILTIAZEM HCL CD 120 MG CAP.SR.24H PO SCH (12:30)
--- NOTE | 2021-11-11 13:48 | NUR ---
PATIENT SEEN AND EXAMINED BY DR SULLIVAN WITH NEW ORDERS AND NOTED.
[2021-11-11 16:00] VITALS: BP 121/68
--- NOTE | 2021-11-11 18:00 | NUR ---
PATIENT IS RESTING IN BED WAS MEDICATED FOR COUGH 2 TIMES ORDERED AND WAS HELPFUL.WILL CONTINUE TO OBSERVE.
[2021-11-11 20:56] VITALS: BP 95/45
[2021-11-11] MEDS: ATORVASTATIN 40 MG TABLET PO SCH (20:58)
[2021-11-11] MEDS: ALPRAZOLAM 0.5 MG TABLET PO PRN (21:05)
[2021-11-11] MEDS ORDERED: DOXEPIN 10 MG CAPSULE ONE (21:16)
[2021-11-11] MEDS: DOXEPIN 10 MG CAPSULE PO SCH (21:43)
[2021-11-12] MEDS: AZITHROMYCIN IV 500 MG in IV DEXTROSE 5% 250 ML IV SCH ×2 (00:01→23:59)
[2021-11-12 00:36] VITALS: BP 112/50
[2021-11-12] MEDS: IPRATROPIUM BROMIDE 0.5 MG/2.5 ML NEBU NEB SCH ×4 (00:47→20:53)
[2021-11-12] MEDS: ALBUTEROL SULFATE 1.25 MG/3 ML NEBU NEB SCH ×4 (00:47→20:54)
[2021-11-12 03:34] LABS: *BILIRUBIN,URIN NEGATIVE (NEGATIVE); *BLOOD, URINE NEGATIVE (NEGATIVE); *CLARITY,URINE CLEAR (CLEAR); *COLOR,URINE YELLOW (YELLOW); *KETONES,URINE NEGATIVE (NEGATIVE); *UROBILINOGEN,URINE 0.2 E.U./dl (NORMAL); LEUKOCYTE ESTERASE ,URINE NEGATIVE (NEGATIVE); NITRITE, URINE NEGATIVE (NEGATIVE); PH,URINE 5.5 (5.0-8.0); UGLUCOSE NEGATIVE (NEGATIVE)
[2021-11-12] MEDS: IV NS 1000 ML 1,000 ML IV PRN ×2 (04:11→17:18)
[2021-11-12 04:40] VITALS: BP 105/47
[2021-11-12] MEDS: methylPREDNISolone SOD SUCC 40 MG/ML VIAL IV SCH ×2 (05:45→16:23)
--- NOTE | 2021-11-12 07:06 | NUR ---
Slept well throughout the night, not in any form of distress. Still noted with occasional cough but refused to take cough medicines. Denies chest pain. Needs assessed and attended to. Call light within reach.
[2021-11-12 07:33] LABS: HEMATOCRIT 34.1 % (31.2-41.9); MEAN CORPUSCULAR HEMOGLOBIN 24.3 uug (24.7-32.8); MEAN CORPUSCULAR VOLUME 77.2 fL (75.5-95.3); PLATELET COUNT (AUTO) 145 K/uL (179-408)
[2021-11-12 07:40] LABS: CREATININE 1.3 mg/dL (0.6-1.3); MAGNESIUM 2.2 mg/dL (1.8-2.4); PHOSPHOROUS 3.6 mg/dL (2.5-4.9); POTASSIUM 4.4 mmol/L (3.5-5.1)
--- NOTE | 2021-11-12 08:00 | NUR ---
Noted pt breathing with wheezing Routing HHN tx given by RT. PT denies any c/o pain. Call light is within reach.
--- NOTE | 2021-11-12 09:00 | NUR ---
PT states that she feels better after the HHN tx.
[2021-11-12] MEDS: LOSARTAN POTASSIUM 25 MG TABLET PO SCH (09:08)
[2021-11-12] MEDS: CARVEDILOL 6.25 MG TABLET PO SCH ×2 (09:09→16:22)
[2021-11-12] MEDS: CLOPIDOGREL 75 MG TABLET PO SCH (09:09)
[2021-11-12] MEDS: CHOLECALCIFEROL 1,000 UNIT TABLET PO SCH (09:09)
[2021-11-12] MEDS: APIXABAN 2.5 MG TABLET PO SCH ×2 (09:10→16:23)
[2021-11-12] MEDS: EZETIMIBE 10 MG TABLET PO SCH (09:10)
[2021-11-12] MEDS: DILTIAZEM HCL CD 120 MG CAP.SR.24H PO SCH (09:10)
[2021-11-12] MEDS: SERTRALINE HCL 100 MG TABLET PO SCH (09:14)
[2021-11-12] MEDS: SOTALOL HCL 80 MG TABLET PO SCH (09:47)
[2021-11-12 12:39] VITALS: BP 103/54
[2021-11-12 16:21] VITALS: BP 121/61
--- NOTE | 2021-11-12 18:30 | NUR ---
PT is in no acute distress. Call light is within reach.
[2021-11-12 20:34] VITALS: BP 142/74
[2021-11-12] MEDS: ATORVASTATIN 40 MG TABLET PO SCH (21:11)
[2021-11-12] MEDS: DOXEPIN 10 MG CAPSULE PO SCH (21:11)
[2021-11-12] MEDS: ALPRAZOLAM 0.5 MG TABLET PO PRN (21:33)
[2021-11-12] MEDS: GUAIFENESIN/DEXTROMETHORPHAN 5 ML UDC PO PRN (23:10)
[2021-11-13] MEDS: IPRATROPIUM BROMIDE 0.5 MG/2.5 ML NEBU NEB SCH ×4 (00:27→19:04)
[2021-11-13] MEDS: ALBUTEROL SULFATE 1.25 MG/3 ML NEBU NEB SCH ×4 (00:27→19:04)
[2021-11-13 04:10] VITALS: BP 145/73
--- NOTE | 2021-11-13 08:01 | NUR ---
Slept well, denies any chest pain, occasional cough noted, no SOB, no noted resp distress. All due meds given. Needs attended. Call light within easy reach.
[2021-11-13] MEDS: EZETIMIBE 10 MG TABLET PO SCH (08:50)
[2021-11-13] MEDS: SERTRALINE HCL 100 MG TABLET PO SCH (08:50)
[2021-11-13] MEDS: methylPREDNISolone SOD SUCC 40 MG/ML VIAL IV SCH ×2 (08:50→17:02)
[2021-11-13] MEDS: CHOLECALCIFEROL 1,000 UNIT TABLET PO SCH (08:50)
[2021-11-13] MEDS: CLOPIDOGREL 75 MG TABLET PO SCH (08:50)
[2021-11-13] MEDS: CARVEDILOL 6.25 MG TABLET PO SCH ×2 (08:51→17:01)
[2021-11-13] MEDS: DILTIAZEM HCL CD 120 MG CAP.SR.24H PO SCH (08:51)
[2021-11-13] MEDS: LOSARTAN POTASSIUM 25 MG TABLET PO SCH (08:52)
[2021-11-13] MEDS: APIXABAN 2.5 MG TABLET PO SCH ×2 (08:52→17:01)
[2021-11-13] MEDS: SOTALOL HCL 80 MG TABLET PO SCH (08:53)
[2021-11-13] MEDS: IV NS 1000 ML 1,000 ML IV PRN (09:02)
--- NOTE | 2021-11-13 09:53 | NUR ---
Received awake and oriented x4. Denies pain. Occasional productive coughing. No sob noted. IVF infusing as ordered. Safety measures in place. Call light in reach.
[2021-11-13 11:37] VITALS: BP 133/64
[2021-11-13] MEDS: ACETYLCYSTEINE 20% 800 MG/4 ML VIAL NEB SCH ×3 (12:36→21:17)
[2021-11-13] MEDS: BENZONATATE 100 MG CAPSULE PO SCH ×3 (13:09→21:17)
[2021-11-13 16:00] VITALS: BP 116/53
[2021-11-13 20:15] VITALS: BP 136/58
[2021-11-13] MEDS: ATORVASTATIN 40 MG TABLET PO SCH (20:44)
[2021-11-13] MEDS: DOXEPIN 10 MG CAPSULE PO SCH (20:44)
[2021-11-13] MEDS: ALPRAZOLAM 0.5 MG TABLET PO PRN (21:06)
[2021-11-13] MEDS: AZITHROMYCIN IV 500 MG in IV DEXTROSE 5% 250 ML IV SCH (23:22)
[2021-11-14] MEDS: GUAIFENESIN/DEXTROMETHORPHAN 5 ML UDC PO PRN (00:26)
[2021-11-14] MEDS: ALBUTEROL SULFATE 1.25 MG/3 ML NEBU NEB SCH ×4 (01:06→19:13)
[2021-11-14] MEDS: IPRATROPIUM BROMIDE 0.5 MG/2.5 ML NEBU NEB SCH ×4 (01:06→19:13)
[2021-11-14 04:00] VITALS: BP 111/67
[2021-11-14] MEDS: BENZONATATE 100 MG CAPSULE PO SCH ×3 (06:00→21:07)
[2021-11-14 06:38] LABS: HEMATOCRIT 33.1 % (31.2-41.9); MEAN CORPUSCULAR HEMOGLOBIN 24.1 uug (24.7-32.8); MEAN CORPUSCULAR VOLUME 76.7 fL (75.5-95.3); PLATELET COUNT (AUTO) 130 K/uL (179-408)
[2021-11-14 07:01] LABS: CARBON DIOXIDE 27 mmol/L (21-32); CHLORIDE 106 mmol/L (98-107); CREATININE 1.5 mg/dL (0.6-1.3); GLUCOSE 115 mg/dL (74-106); MAGNESIUM 2.4 mg/dL (1.8-2.4); PHOSPHOROUS 3.6 mg/dL (2.5-4.9); UREA NITROGEN, BLOOD 37 mg/dL (7-18)
[2021-11-14] MEDS: ACETYLCYSTEINE 20% 800 MG/4 ML VIAL NEB SCH ×2 (07:41→19:13)
--- NOTE | 2021-11-14 08:00 | NUR ---
Pt alert and oriented x 4. Aspiration precaution implemented. HOB elevated when eating. routine HHN TX given by RT. Pt coughing offered robitussin pt refused.
[2021-11-14] MEDS: EZETIMIBE 10 MG TABLET PO SCH (09:04)
[2021-11-14] MEDS: methylPREDNISolone SOD SUCC 40 MG/ML VIAL IV SCH (09:04)
[2021-11-14] MEDS: APIXABAN 2.5 MG TABLET PO SCH ×2 (09:04→17:42)
[2021-11-14] MEDS: CHOLECALCIFEROL 1,000 UNIT TABLET PO SCH (09:05)
[2021-11-14] MEDS: SERTRALINE HCL 100 MG TABLET PO SCH (09:05)
[2021-11-14] MEDS: CLOPIDOGREL 75 MG TABLET PO SCH (09:05)
[2021-11-14] MEDS: DILTIAZEM HCL CD 120 MG CAP.SR.24H PO SCH (09:05)
[2021-11-14] MEDS: CARVEDILOL 6.25 MG TABLET PO SCH ×2 (09:05→17:41)
[2021-11-14] MEDS: SOTALOL HCL 80 MG TABLET PO SCH (09:08)
[2021-11-14] MEDS: LOSARTAN POTASSIUM 25 MG TABLET PO SCH (09:08)
[2021-11-14] MEDS: ACETAMINOPHEN 325 MG TABLET PO PRN (10:59)
[2021-11-14] MEDS: PANTOPRAZOLE SODIUM 40 MG TABLET.DR PO SCH (11:01)
[2021-11-14] MEDS ORDERED: ACETAMINOPHEN/CODEINE 120-12 MG PER 5 ML LIQUID UDC PO PRN (11:30)
[2021-11-14 11:54] VITALS: BP 110/63
[2021-11-14] MEDS: PROTEIN SUPPLEMENT (PROSTAT) 30 ML LIQUID PO SCH (13:00)
[2021-11-14] MEDS: GLUCERNA SHAKE 237 ML CAN PO SCH ×2 (13:00→17:00)
[2021-11-14 16:14] VITALS: BP 130/63
--- NOTE | 2021-11-14 18:00 | NUR ---
Dr Khan here to see patient. Aware pt coughing throughout shift and states that the tessalon pearls doesnt work per patient. New order received and carried out. Call light i s within reach.
[2021-11-14] MEDS: GUAIFENESIN/DEXTROMETHORPHAN TAB.SR.12H PO SCH ×2 (18:07→21:07)
--- NOTE | 2021-11-14 19:35 | NUR ---
Patient alert oriented, sob on exertion, with moist cough, cont on HHN tx as ordered, cont ABX for PNA. Patient goes to the toilet with min assist, patient under the care of color matcher with multiple treatment as ordered. cont to monitor.
[2021-11-14 20:00] VITALS: BP 144/67
[2021-11-14] MEDS: ATORVASTATIN 40 MG TABLET PO SCH (20:53)
[2021-11-14] MEDS: DOXEPIN 10 MG CAPSULE PO SCH (20:54)
[2021-11-14] MEDS: ALPRAZOLAM 0.5 MG TABLET PO PRN (22:18)
[2021-11-15] MEDS: AZITHROMYCIN IV 500 MG in IV DEXTROSE 5% 250 ML IV SCH (00:10)
[2021-11-15] MEDS: IPRATROPIUM BROMIDE 0.5 MG/2.5 ML NEBU NEB SCH ×4 (01:15→20:53)
[2021-11-15] MEDS: ALBUTEROL SULFATE 1.25 MG/3 ML NEBU NEB SCH ×4 (01:15→20:53)
[2021-11-15 04:00] VITALS: BP 130/68
[2021-11-15] MEDS: BENZONATATE 100 MG CAPSULE PO SCH ×3 (05:57→22:15)
[2021-11-15] MEDS: PANTOPRAZOLE SODIUM 40 MG TABLET.DR PO SCH (06:13)
--- NOTE | 2021-11-15 06:43 | NUR ---
Patient awake alert, no complain of chest pain, sob during exertion, on 2 lpm oxygen for hellp. Patient has moist cough, wheezing noted, kept hob elevated, on treathing treatment, cont to monitor.
[2021-11-15 06:53] LABS: HEMATOCRIT 32.7 % (31.2-41.9); MEAN CORPUSCULAR HEMOGLOBIN 24.2 uug (24.7-32.8); MEAN CORPUSCULAR VOLUME 76.2 fL (75.5-95.3); PLATELET COUNT (AUTO) 128 K/uL (179-408)
[2021-11-15 07:07] LABS: CARBON DIOXIDE 28 mmol/L (21-32); CHLORIDE 106 mmol/L (98-107); CREATININE 1.4 mg/dL (0.6-1.3); GLUCOSE 102 mg/dL (74-106); MAGNESIUM 2.4 mg/dL (1.8-2.4); UREA NITROGEN, BLOOD 41 mg/dL (7-18)
[2021-11-15] MEDS: ACETYLCYSTEINE 20% 800 MG/4 ML VIAL NEB SCH ×2 (07:42→20:53)
[2021-11-15 08:00] VITALS: BP 141/72
[2021-11-15] MEDS: PROTEIN SUPPLEMENT (PROSTAT) 30 ML LIQUID PO SCH (08:00)
[2021-11-15] MEDS: methylPREDNISolone SOD SUCC 40 MG/ML VIAL IV SCH (08:55)
[2021-11-15] MEDS: EZETIMIBE 10 MG TABLET PO SCH (08:55)
[2021-11-15] MEDS: LOSARTAN POTASSIUM 25 MG TABLET PO SCH (08:56)
[2021-11-15] MEDS: CLOPIDOGREL 75 MG TABLET PO SCH (08:56)
[2021-11-15] MEDS: DILTIAZEM HCL CD 120 MG CAP.SR.24H PO SCH (08:56)
[2021-11-15] MEDS: CHOLECALCIFEROL 1,000 UNIT TABLET PO SCH (08:56)
[2021-11-15] MEDS: CARVEDILOL 6.25 MG TABLET PO SCH ×2 (08:57→17:55)
--- NOTE | 2021-11-15 09:10 | NUR ---
Received patient awake, alert and oriented with no acute respiratory distress noted. denies SOB, continue on Oxygen via NC at 2 l/m, saturating between 95 to 96%. Discussed the days goals with patient.
[2021-11-15] MEDS: GLUCERNA SHAKE 237 ML CAN PO SCH ×2 (11:57→17:55)
[2021-11-15] MEDS: SERTRALINE HCL 100 MG TABLET PO SCH (11:58)
[2021-11-15 12:00] VITALS: BP 132/66
[2021-11-15] MEDS: APIXABAN 2.5 MG TABLET PO SCH ×2 (12:01→17:50)
[2021-11-15] MEDS: SOTALOL HCL 80 MG TABLET PO SCH (12:02)
[2021-11-15] MEDS: GUAIFENESIN/DEXTROMETHORPHAN TAB.SR.12H PO SCH ×2 (12:29→20:48)
[2021-11-15 14:46] VITALS: BP 127/64
--- NOTE | 2021-11-15 18:41 | NUR ---
Patient awake, alert and oriented with no acute respiratory distress noted. denies SOB, continue on Oxygen via NC at 2 l/m, saturating between 96 to 97%. will continue to monitor.
--- NOTE | 2021-11-15 20:00 | NUR ---
RECEIVED PATIENT IN BED. AWAKE, ALERT, NON VERBAL. PATIENT SHOWS NO SIGNS OF ACUTE DISTRESS. SAFETY PRECAUTIONS INITIATED. CALL LIGHT BUTTON WITHIN REACH. WILL CONTINUE TO MONITOR. Addendum: 11/15/21 at 2345 by BRITTANIE BUI RN DISREGARD WRONG PATIENT.
--- NOTE | 2021-11-15 20:00 | NUR ---
RECEIVED PATIENT IN BED. AWAKE, ALERT, ORIENTED X 4. ABLE TO MAKE NEEDS KNOWN. PATIENT DENIES SOB, CHEST PAIN OR DIZZINESS AT THIS TIME. SAFETY PRECAUTIONS INITIATED. CALL LIGHT BUTTON WITHIN REACH. WILL CONTINUE TO MONITOR.
[2021-11-15 20:21] VITALS: BP 127/58
[2021-11-15] MEDS: ATORVASTATIN 40 MG TABLET PO SCH (20:46)
[2021-11-15] MEDS: DOXEPIN 10 MG CAPSULE PO SCH (20:47)
[2021-11-15] MEDS: ALPRAZOLAM 0.5 MG TABLET PO PRN (22:12)
[2021-11-16] MEDS: IPRATROPIUM BROMIDE 0.5 MG/2.5 ML NEBU NEB SCH ×3 (00:45→13:23)
[2021-11-16] MEDS: ALBUTEROL SULFATE 1.25 MG/3 ML NEBU NEB SCH ×3 (00:46→13:23)
[2021-11-16] MEDS: BENZONATATE 100 MG CAPSULE PO SCH ×2 (06:00→14:19)
[2021-11-16] MEDS: PANTOPRAZOLE SODIUM 40 MG TABLET.DR PO SCH (07:00)
[2021-11-16 08:12] LABS: HEMATOCRIT 33.1 % (31.2-41.9); MEAN CORPUSCULAR HEMOGLOBIN 24.3 uug (24.7-32.8); MEAN CORPUSCULAR VOLUME 76.8 fL (75.5-95.3); PLATELET COUNT (AUTO) 133 K/uL (179-408)
[2021-11-16 08:39] LABS: CARBON DIOXIDE 28 mmol/L (21-32); CHLORIDE 104 mmol/L (98-107); CREATININE 1.4 mg/dL (0.6-1.3); GLUCOSE 98 mg/dL (74-106); MAGNESIUM 2.5 mg/dL (1.8-2.4); UREA NITROGEN, BLOOD 42 mg/dL (7-18)
[2021-11-16] MEDS: SERTRALINE HCL 100 MG TABLET PO SCH (09:58)
[2021-11-16] MEDS: EZETIMIBE 10 MG TABLET PO SCH (09:58)
[2021-11-16] MEDS: methylPREDNISolone SOD SUCC 40 MG/ML VIAL IV SCH (09:58)
[2021-11-16] MEDS: CHOLECALCIFEROL 1,000 UNIT TABLET PO SCH (09:59)
[2021-11-16] MEDS: CLOPIDOGREL 75 MG TABLET PO SCH (09:59)
[2021-11-16] MEDS: CARVEDILOL 6.25 MG TABLET PO SCH (10:02)
[2021-11-16] MEDS: APIXABAN 2.5 MG TABLET PO SCH (10:02)
[2021-11-16] MEDS: DILTIAZEM HCL CD 120 MG CAP.SR.24H PO SCH (10:03)
[2021-11-16] MEDS: LOSARTAN POTASSIUM 25 MG TABLET PO SCH (10:05)
[2021-11-16] MEDS: PROTEIN SUPPLEMENT (PROSTAT) 30 ML LIQUID PO SCH (10:05)
[2021-11-16] MEDS: GLUCERNA SHAKE 237 ML CAN PO SCH (10:06)
[2021-11-16] MEDS: GUAIFENESIN/DEXTROMETHORPHAN TAB.SR.12H PO SCH (10:07)
[2021-11-16] MEDS: ACETYLCYSTEINE 20% 800 MG/4 ML VIAL NEB SCH (10:09)
--- NOTE | 2021-11-16 11:12 | NUR ---
0600 tessalon and 0700 protonix have been administered by sex therapist. documentation on paper medication record. Pt is a/o x 4, pt plan is to discharge to SNF today around 1400. Pt is aware and agreeable. comfort measures provided, call light within reach. Will continue to monitor.
[2021-11-16 12:05] VITALS: BP 107/56
[2021-11-16 12:15] VITALS: BP 144/68
[2021-11-16] MEDS: SOTALOL HCL 80 MG TABLET PO SCH (12:15)
--- NOTE | 2021-11-16 14:42 | NUR ---
Pt has been discharged to [facility]. All discharge education and materials provided for pt. IV and ID bands removed. Pt is not in any acute state. Transfer by Ambulance. All personal belongings at hand and signed for. Pt is agreeable with discharge and family is aware.
== END 2021-11-16 14:40 | DRG 871 ==
LOC: ER 13:05 → TELE3 15:54 → MEDSURG3 11-12 13:43
PROVIDERS: ADMIT Nurse Practitioner Acute Care; ATTEND Nurse Practitioner Family
DX: A41.9 Sepsis, unspecified organism (principal); N17.0 Acute kidney failure with tubular necrosis; E44.0 Moderate protein-calorie malnutrition; J44.1 Chronic obstructive pulmonary disease with (acute) exacerbation; J44.0 Chronic obstructive pulmonary disease with (acute) lower respiratory infection; I13.0 Hypertensive heart and chronic kidney disease with heart failure and stage 1 through stage 4 chronic kidney disease, or unspecified chronic kidney disease; I50.32 Chronic diastolic (congestive) heart failure; J45.901 Unspecified asthma with (acute) exacerbation; I48.20 Chronic atrial fibrillation, unspecified; N18.4 Chronic kidney disease, stage 4 (severe); I48.0 Paroxysmal atrial fibrillation; R65.10 Systemic inflammatory response syndrome (SIRS) of non-infectious origin without acute organ dysfunction; J20.9 Acute bronchitis, unspecified; E11.22 Type 2 diabetes mellitus with diabetic chronic kidney disease; E78.5 Hyperlipidemia, unspecified; I25.10 Atherosclerotic heart disease of native coronary artery without angina pectoris; Z79.01 Long term (current) use of anticoagulants; Z87.891 Personal history of nicotine dependence; Z95.5 Presence of coronary angioplasty implant and graft; Z88.0 Allergy status to penicillin; E88.09 Other disorders of plasma-protein metabolism, not elsewhere classified; Z99.81 Dependence on supplemental oxygen; R13.10 Dysphagia, unspecified; J44.9 Chronic obstructive pulmonary disease, unspecified; D72.828 Other elevated white blood cell count; T38.0X5A Adverse effect of glucocorticoids and synthetic analogues, initial encounter; Z20.822 Contact with and (suspected) exposure to COVID-19
CPT/HCPCS: 36415; 70220; 71045; 83605; 83735; 84100; 84484; 85025; 85730; 87040; 87086; 93005; 93307; 94640; 97161; A4663; G0378; J0456; J2405; J2920; J3490; J3590; J7040; J7050; J7512